=== PATIENT | female | born 1980 | race Caucasian/White ===

== ENCOUNTER 2021-08-29 20:25 | Emergency (ER) | payer BC, OTHER ==
[2021-08-29] MEDS ORDERED: Morphine 2 MG/ML VIAL ONE (21:43)
[2021-08-29] MEDS ORDERED: Morphine 4 MG/ML VIAL ONE (23:39)
[2021-08-30] MEDS ORDERED: HYDROcodone/Acetaminophen 5/325 mg Tablet ONE (01:48)
== END 2021-08-30 01:50 | disposition home or self-care (01) ==
LOC: CSHERS 20:25
DX: S92.534A Nondisplaced fracture of distal phalanx of right lesser toe(s), initial encounter for closed fracture (principal); S62.301A Unspecified fracture of second metacarpal bone, left hand, initial encounter for closed fracture; S92.421A Displaced fracture of distal phalanx of right great toe, initial encounter for closed fracture; X58.XXXA Exposure to other specified factors, initial encounter
CPT/HCPCS: 71045; 72170; 96374; 96376; J2270

== ENCOUNTER 2023-12-08 21:08 | Emergency (ER) | payer BC, OTHER | END 2023-12-08 23:48 | disposition home or self-care (01) | LOC: CSHERS 21:08 | DX: M79.605 Pain in left leg (principal) ==

== ENCOUNTER 2024-12-04 10:00 | Emergency (ER) | payer OTHER ==
[2024-12-04] MEDS ORDERED: Iopamidol 300 61% 100 ML VIAL FS ONE (10:03)
[2024-12-04] MEDS ORDERED: Ondansetron PF 4 MG/2 ML Vial ONE (10:40)
[2024-12-04] MEDS ORDERED: Famotidine/PF 20 mg/2ml Vial ONE (10:40)
[2024-12-04] MEDS ORDERED: Ketorolac Tromethamine 30 MG (1 mL) VIAL ONE (10:40)
[2024-12-04 10:42] LABS: #Basophils 0.04 10x3/uL (0.0-0.2); #Eosinophils 0.06 10x3/uL (0.0-0.5); #Monocytes 0.33 10x3/uL (0.0-1.1); #Neutrophils 2.45 10x3/uL (1.5-8.4); %Basophils 0.9 % (0.0-2.0); %Eosinophils 1.3 % (0.0-6.0); %Lymphocytes 38.2 % (18.0-47.0); %Monocytes 7.0 % (0.0-10.0); %Neutrophils 52.2 % (40.0-75.0); Hematocrit 40.1 % (34.9-44.5); Hemoglobin 12.8 g/dL (12.0-15.5); Mean Corpuscular Hemoglobin 29.8 pg (27.0-33.0); Mean Corpuscular Volume 93.3 fL (81.6-98.3); Platelet Count 236 10x3/uL (150-450); Red Blood Cell (RBC) Count 4.30 10x6/uL (3.90-5.03); White Blood Cell (WBC) Count 4.69 10x3/uL (3.5-10.5)
[2024-12-04 10:52] LABS: BHCG - Serum Negative (NEGATIVE); Pregs Control Background? CLEAR/WHITE (CLR/WHITE); Pregs Control Bar Appear? YES (CONTROL BAR)
[2024-12-04 10:58] LABS: ALT (SGPT) 9 U/L (Less than 34); AST (SGOT) 16 U/L (11-34); Albumin 4.3 g/dL (3.1-4.5); Alkaline Phosphatase 35 U/L (40-110); Anion Gap 10 mmol/L (10-20); BUN (Urea Nitrogen) 15 mg/dL (7.0-18.7); Bilirubin, Total 0.4 mg/dL (0.3-1.2); Calc. Creatinine Clearance 0 mL/min (70-130); Calcium 8.6 mg/dL (7.8-10.44); Carbon Dioxide 22 mmol/L (22-29); Chloride 110 mmol/L (98-107); Globulin 2.5 g/dL (2.4-3.5); Glucose 92 mg/dL (70-105); Lipase 19 U/L (8-78); Potassium 3.7 mmol/L (3.5-5.1); Sodium 138 mmol/L (136-145)
== END 2024-12-04 12:54 | disposition home or self-care (01) ==
LOC: CSHERS 10:00
DX: R10.84 Generalized abdominal pain (principal); K21.9 Gastro-esophageal reflux disease without esophagitis; Z79.899 Other long term (current) drug therapy; Z55.6 Problems related to health literacy
CPT/HCPCS: 74177; 80053; 83690; 84703; 85025; 93005; 96374; 96375; J1885; Q9967